=== PATIENT | male | born 1980 | race Caucasian/White ===

== ENCOUNTER 2016-10-14 17:05 | Emergency (ER) | payer MEDICAID ==
[2016-10-14 17:11] VITALS: O2SAT 96
--- NOTE | 2016-10-14 17:23 | CPEKG ---
Heart Rate: 57 RR Interval: 1053 P-R Interval: 152 QRSD Interval: 82 QT Interval: 384 QTC Interval: 374 P [place]: 42 QRS [place]: 75 T Wave [place]: 63 EKG Severity - ABNORMAL ECG - EKG Impression: SINUS RHYTHM EKG Impression: LVH BY VOLTAGE EKG Impression: ST ELEVATION SUGGESTS PERICARDITIS Electronically Signed By: Oralia Levine 14-Oct-2016 21:19:25
[2016-10-14 17:48] LABS: % IMMATURE GRANULYOCYTES 0.3 % (0.0-1.1); ABSOLUTE IMMATURE GRANULOCYTES 0.02 10^3/uL (0.00-0.10); ADD DIFF? NO; ADD MORPH? NO; ADD SCAN? NO; ATYPICAL LYMPHOCYTE FLAG 20 (0-99); FRAGMENT RBC FLAG 0 (0-99); LEFT SHIFT FLG 0 (0-99); LIPEMIA HEMOLYSIS FLAG 90 (0-99); MEAN CELL HEMOGLOBIN 31.2 pg (27.9-34.1); MEAN CELL HEMOGLOBIN CONCENTR. 34.9 g/dL (32.4-36.7); MEAN CELL VOLUME 89.4 fL (81.5-99.8); MEAN PLATELET VOLUME 9.7 fL (8.7-11.7); PLATELET CLUMPS FLAG 10 (0-99); PLATELET COUNT 229 10^3/uL (150-400); RED BLOOD CELL COUNT 4.81 10^6/uL (4.40-6.38); RED CELL DISTRIBUTION WIDTH 12.4 % (11.5-15.2)
[2016-10-14 18:03] LABS: ANION GAP 10 mEq/L (8-16); CALCIUM 9.7 mg/dL (8.5-10.4); CARBON DIOXIDE 22 mEq/l (22-31); CHLORIDE 109 mEq/L (97-110); CREATININE 0.9 mg/dL (0.7-1.3); GLOMERULAR FILTRATION RATE > 60; GLUCOSE 92 mg/dL (70-100); POTASSIUM 4.2 mEq/L (3.5-5.2); SODIUM 141 mEq/L (134-144)
--- NOTE | 2016-10-14 18:10 | EDPHY ---
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 Triage note states the patient had an episode of chest pain but he denies any chest pain. He states he was in his car and had sudden palpitations. He felt as though was difficult to take a deep breath and he felt short of breath. His symptoms only lasted for minute or 2 and then resolved. He drove directly to the emergency department. Patient has no chest pain or shortness of breath at this time. The patient has had numerous recent complaints. He states for the past month he has had a rash that is diffuse across his chest and abdomen. It is occasionally itchy. It waxes and wanes. Patient also has had mild joint discomfort. He feels a burning sensation in his hands and feet bilaterally. This is also intermittent. No headache or neck pain. No fevers or chills. No pedal edema. No recent travel. REVIEW OF SYSTEMS: My complete review of systems is negative except as mentioned in the HPI. Past Medical/Surgical History: Includes kidney stones, UTI, SVT, child asthma, salmonella, colitis Past surgical history: Cardiac ablation Social history: The patient uses marijuana. Smoking Status: Former smoker Physical Exam: Vitals noted GENERAL: Well-appearing, in no acute distress, alert. HEENT: Eyes normal to inspection, normal pharynx, no signs of dehydration. NECK: No thyromegaly, no lymphadenopathy, supple. RESPIRATORY: Clear to auscultation bilaterally, no rales, rhonchi or wheezing. CVS: Regular rate and rhythm, no rubs, murmurs, or gallops. ABDOMEN: Soft, nontender, nondistended, no organomegaly. BACK: Normal to inspection, no CVA tenderness. SKIN: Normal color, no rash, warm, dry. No pallor. EXTREMITIES: No pedal edema, no calf tenderness, no Homans sign or cords, no joint swelling. NEURO/PSYCH: Alert and oriented x3, normal mood and affect, normal motor sensory exam. No obvious cranial nerve deficit. Constitutional: Initial Vital Signs Temperature (C) 36.9 C 10/14/16 17:08 Heart Rate 62 10/14/16 17:08 Respiratory Rate 20 10/14/16 17:08 Blood Pressure 114/74 10/14/16 17:08 O2 Sat (%) 96 10/14/16 17:08 O2 Delivery Mode Room Air Allergies/Adverse Reactions: Penicillins Allergy (Verified 01/31/16 18:12) Hives Home Medications: Medication Instructions Recorded NK [No Known Home Meds] 10/14/16 Medical Decision Making ED Course/Re-evaluation: In the emergency department I discussed possible etiologies with the patient. I answered all his questions. An IV was placed. Laboratory studies and EKG were obtained. EKG: Sinus rhythm at 57. LVH. Diffuse ST elevation. This was compared with previous EKG 02/01/2016 and is unchanged. I informed Dr. Knowles that the patient was in the emergency department. Dr. Knowles will follow up with the patient. Differential Diagnosis: My differential includes but is not limited to ACS, acute IA, dysrhythmia, electrolyte abnormality, sugar abnormality - Data Points Laboratory Results: Laboratory Results 10/14/16 17:35 10/14/16 17:35 10/14/16 10/14/16 10/14/16 17:35 17:35 17:35 WBC 6.51 10^3/uL 10^3/uL (3.80-9.50) RBC 4.81 10^6/uL 10^6/uL (4.40-6.38) Hgb 15.0 g/dL g/dL (13.7-17.5) Hct 43.0 % % (40.0-51.0) MCV 89.4 fL fL (81.5-99.8) MCH 31.2 pg pg (27.9-34.1) MCHC 34.9 g/dL g/dL (32.4-36.7) RDW 12.4 % % (11.5-15.2) Plt Count 229 10^3/uL 10^3/uL (150-400) MPV 9.7 fL fL (8.7-11.7) Neut % (Auto) 40.0 % % (39.3-74.2) Lymph % (Auto) 48.2 % H % (15.0-45.0) Garrett % (Auto) 7.8 % % (4.5-13.0) Eos % (Auto) 2.9 % % (0.6-7.6) Baso % (Auto) 0.8 % % (0.3-1.7) Nucleat RBC Rel Count 0.0 % % (0.0-0.2) Absolute Neuts (auto) 2.60 10^3/uL 10^3/uL (1.70-6.50) Absolute Lymphs (auto) 3.14 10^3/uL H 10^3/uL (1.00-3.00) Absolute Monos (auto) 0.51 10^3/uL 10^3/uL (0.30-0.80) Absolute Eos (auto) 0.19 10^3/uL 10^3/uL (0.03-0.40) Absolute Basos (auto) 0.05 10^3/uL 10^3/uL (0.02-0.10) Absolute Nucleated RBC 0.00 10^3/uL 10^3/uL (0-0.01) Immature Gran % 0.3 % % (0.0-1.1) Immature Gran # 0.02 10^3/uL 10^3/uL (0.00-0.10) VBG Lactic Acid 1.3 mmol/L mmol/L (0.7-2.1) Sodium 141 mEq/L mEq/L (134-144) Potassium 4.2 mEq/L mEq/L (3.5-5.2) Chloride 109 mEq/L mEq/L (97-110) Carbon Dioxide 22 mEq/l mEq/l (22-31) Anion Gap 10 mEq/L mEq/L (8-16) BUN 14 mg/dL mg/dL (7-23) Creatinine 0.9 mg/dL mg/dL (0.7-1.3) Estimated GFR > 60 Glucose 92 mg/dL mg/dL (70-100) Calcium 9.7 mg/dL mg/dL (8.5-10.4) Troponin I < 0.012 ng/mL ng/mL (0-0.034) Departure - Departure Disposition: Home, Routine, Self-Care Clinical Impression: Palpitations Condition: Good Instructions: Palpitations (ED) Additional Instructions: Return with increasing palpitations, chest pain, shortness of breath or any other concerns. Referrals: Vel Knowles MD [Medical Doctor] - 5-7 days, call for appt. Salvador Otero DO [Medical Doctor] - 5-7 days, call for appt.
[2016-10-14 18:15] LABS: TROPONIN I < 0.012 ng/mL (0-0.034)
[2016-10-14 20:25] VITALS: BP 122/75; PULSE 50; RESP 18; TEMP 97.9
== END 2016-10-14 20:22 | disposition home or self-care (01) ==
DX: R00.2 Palpitations (principal); J45.909 Unspecified asthma, uncomplicated; Z87.891 Personal history of nicotine dependence